=== PATIENT | female | born 1935 | race Caucasian/White ===

== ENCOUNTER 2016-04-28 01:19 | Emergency (ER) | payer MEDICARE ==
[2016-04-28 02:03] LABS: INR 4.21; PROTHROMBIN TIME 47.7 SECONDS (9.3-11.4)
== END 2016-04-28 02:35 | disposition home or self-care (01) ==
LOC: ED 01:19
DX: I83.891 Varicose veins of right lower extremity with other complications (principal); D68.8 Other specified coagulation defects; I10 Essential (primary) hypertension; I48.91 Unspecified atrial fibrillation; J44.9 Chronic obstructive pulmonary disease, unspecified; Z79.01 Long term (current) use of anticoagulants